=== PATIENT | male | born 1985 | race Caucasian/White ===

== ENCOUNTER 2020-02-19 16:16 | Emergency (ER) | payer OTHER ==
[~2020-02-19] VITALS: Ht 175.3 cm; Wt 99.8 kg
[2020-02-19 16:30] VITALS: Ht 175.3 cm; Wt 99.8 kg
[2020-02-19 19:04] VITALS: BP 104/66
== END 2020-02-19 19:04 | disposition home or self-care (01) ==
LOC: ED 16:16
DX: R51.9 Headache, unspecified (principal); I10 Essential (primary) hypertension; E78.00 Pure hypercholesterolemia, unspecified